=== PATIENT | male | born 2005 | race Caucasian/White ===

== ENCOUNTER → 2024-07-03 | Outpatient (BNVA) | payer MEDICAID, SELFPAY | END | disposition home or self-care (01) | PROVIDERS: PCP Nurse Practitioner Family; Referring Provider Nurse Practitioner Family; Visit Provider Nurse Practitioner Family | DX: E10.9 Type 1 diabetes mellitus without complications (principal); T78.40XA Allergy, unspecified, initial encounter | CPT/HCPCS: 83036; 99215 ==

== ENCOUNTER 2024-07-11 23:49 | Emergency (ER) | payer MEDICAID, SELFPAY ==
[2024-07-11 23:50] VITALS: BMI 25.0
[2024-07-11 23:57] VITALS: BP 134/86; PULSE 93; RESP 18; TEMP 36.4; O2SAT 100
--- NOTE | 2024-07-12 00:10 | PD.EDRME ---
Rapid Medical Screening Exam RME Arrival date/time: 07/11/24 23:49 19M with history of DM and anxiety presents to ED with several days of RLQ pain. Separately, patient has had several days of painful bumps on R-side of neck, but different than previous swollen lymph nodes, which resolved completely prior to this. Patient recently moved back to [facility] and saw PCP who ordered extensive DM panel due to A1C>15%. Chief Complaint: General Adult/Misc Complain Time Seen by Provider: 07/12/24 01:36 Vital signs: Vital Signs Temperature 97.6 F 07/11/24 23:57 Pulse Rate 93 07/11/24 23:57 Respiratory Rate 18 07/11/24 23:57 Blood Pressure 134/86 H 07/11/24 23:57 Pulse Oximetry (%) 100 07/11/24 23:57 Oxygen Delivery Method Room Air 07/11/24 23:57
[2024-07-12 00:46] LABS: Collection Type, Urine Clean Catch; Squamous Epithelial Cell,Urine 0 /hpf (0-5)
[2024-07-12] MEDS: ONDANSETRON INJ 2 MG/ML INJ 2 ML 4 MG IV (00:52)
[2024-07-12 01:00] LABS: Basophils # (Auto) 0.1 Thou/mm3 (0.0-0.2); Basophils % (Auto) 1 % (0-2.5); Eosinophils # (Auto) 0.3 Thou/mm3 (0.0-0.5); Eosinophils % (Auto) 3 % (0-10); Hemoglobin 16.4 g/dL (13.5-16.0); Immature Granulocytes % (Auto) 0 % (0-0); Immature Granulocytes Auto 0.04 Thou/mm3 (0.00-0.00); Lymphocytes # (Auto) 4.1 Thou/mm3 (1.0-4.8); Lymphocytes % (Auto) 38 % (10-50); Mean Corpuscular HGB Conc 35.7 g/dl (31.0-37.0); Mean Corpuscular Hemoglobin 29.2 pg (25.0-35.0); Mean Corpuscular Volume 82 fL (80-100); Monocytes # (Auto) 0.8 Thou/mm3 (0.0-0.8); Monocytes % (Auto) 8 % (0-12); Neutrophils # (Auto) 5.3 Thou/mm3 (1.8-7.7); Neutrophils % (Auto) 50 % (37-80); Nucleated Red Blood Cell % 0 /100 WBC (0); Platelet Count 288 Thou/mm3 (140-440); RDW Standard Deviation 35.6 fL (35.1-43.9); Red Blood Count 5.61 Miln/mm3 (4.50-5.90); White Blood Count 10.6 Thou/mm3 (3.8-10.6)
[2024-07-12 01:06] LABS: Bilirubin,Urine Negative (Negative); Blood,Urine Negative (Negative); Clarity,Urine Clear (Clear/Hazy); Color,Urine Lt-Yellow (Lt Yel-Yel); Glucose, Urine 4+ (Negative); Ketones,Urine 1+ (Negative); Leukocyte Esterase,Urine Negative (Negative); Nitrite,Urine Negative (Negative); Protein,Urine Negative (Neg - Trace); RBC,Urine 1 /hpf (0-3); Specific Gravity,Urine 1.046 (1.001-1.035); Urobilinogen,Urine Negative mg/dL (0.0-1.0); WBC,Urine < 1 /hpf (0-5)
[2024-07-12 01:25] LABS: Amphetamine/Methamp Scrn,U Negative (Negative); Barbiturate Screen,Urine Negative (Negative); Benzodiazepines Screen,Urine Negative (Negative); Benzoylecgonine Screen, Ur Negative (Negative); Fentanyl Screen,Urine Negative (Negative); Opiate Screen,Urine Negative (Negative); THC Screen,Urine Negative (Negative)
[2024-07-12 01:26] LABS: Alanine Aminotransferase 14 U/L (10-49); Albumin/Globulin Ratio 2.2 (1.2-2.2); Alkaline Phosphatase 80 U/L (46-116); Anion Gap 6 (7-16); BUN/Creatinine Ratio 8 Ratio (12-20); Bilirubin,Total 0.5 mg/dL (0.3-1.2); Blood Urea Nitrogen 8 mg/dL (9-23); Calcium 9.7 mg/dL (8.3-10.6); Calcium (Corrected) 9.7 mg/dL (8.5-10.1); Carbon Dioxide 26.5 mMol/L (20.0-31.0); Chloride 102 mMol/L (98-107); Estimated Creatinine Clearance 135.9 mL/min (>60); Globulin 2.3 gm/dL (2.3-3.5); Lipase 29 U/L (12-53); Osmolality,Calculated 284 (275-295); Sodium 134 mMol/L (136-145); Total Protein 7.3 gm/dL (5.7-8.2); eGFR > 60 See Note
[2024-07-12 01:33] LABS: Glucose 431 mg/dL (74-106)
--- NOTE | 2024-07-12 01:37 | EDNOTE_ITS ---
ED Skin Abcess FB-RME/HPI General Chief complaint: General Adult/Misc Complain Stated complaint: ABD PAIN, BUMPS ON RIGHT NECK Time Seen by Provider: 07/12/24 01:36 Arrival date/time: 07/11/24 23:49 19M with history of DM and anxiety presents to ED with several days of lower ab pain. Separately, patient has had several days of painful bumps on R-underside of chin, but different than previous swollen lymph nodes, which resolved completely prior to this. Patient recently moved back to [facility] and saw PCP who ordered extensive DM panel due to A1C>15%. Limitations: no limitations Related Data Previous Rx's ?Medication ?Instructions ?Recorded flash glucose scanning reader #1 ea 07/03/24 (FreeStyle Shamika 14 Day [place]) flash glucose sensor (FreeStyle #1 ea 07/03/24 Shamika 14 Day Sensor kit) insulin glargine 100 unit/mL (3 30 unit (0.3 mL) subcut QAM 30 07/03/24 mL) subcutaneous pen (Basaglar days #9 mL KwikPen U-100 Insulin) insulin lispro 100 unit/mL 1 sliding scale dose subcut 07/03/24 subcutaneous pen (Admelog SoloStar USEASDIRECTD 30 days #15 mL U-100 Insulin lispro) pen needle, diabetic 32 gauge x #100 ea 07/03/24/ (BD Ultra-Fine Micro Pen Needle) doxycycline hyclate 100 mg tablet 100 mg PO BID 10 days #20 tabs 07/12/24 Allergies Allergy/AdvReac Type Severity Reaction Status Date / Time amoxicillin Allergy Intermediate THROAT Verified 07/11/24 23:53 SWELLING Review of Systems Review of Systems Systems Reviewed: All systems reviewed, normal except as documented Constitutional Constitutional: Reports system reviewed and no additional complaints, except as documented, Denies fever(s) and Denies headache(s) ENT Ears, Nose, Mouth, and Throat: Denies disequilibrium and Denies headache(s) Cardiovascular Cardiovascular: Reports system reviewed and no additional complaints, except as documented, Denies chest pain and Denies dyspnea Respiratory Respiratory: Reports system reviewed and no additional complaints, except as documented, Denies cough and Denies dyspnea Gastrointestinal Gastrointestinal: Reports system reviewed and no additional complaints, except as documented, Reports as per HPI, Reports abdominal pain, Denies nausea and Denies vomiting Integumentary/Breasts Skin/Breast: Reports as per HPI and Reports skin pain Neurologic Neurologic: Reports system reviewed and no additional complaints, except as documented, Denies confusion, Denies disequilibrium and Denies headache(s) Psychiatric Psychiatric: Denies confusion Past Medical History Past Medical History CARDIAC: Negative Cardiac Disorders RESPIRATORY: Negative Asthma GENITOURINARY: Negative Renal Disease ENDOCRINE: Positive Diabetes Mellitus Type 2 HEMATOLOGIC: Negative Sickle Cell Disease Social History SMOKING STATUS: Current every day smoker SECOND HAND EXPOSURE: Yes ED Exam General Limitations: Present no limitations General appearance: Present alert and in no apparent distress Head Head exam: Present atraumatic Eye Eye exam: Present normal appearance, PERRL and EOMI ENT ENT exam: Present normal exam, normal oropharynx and mucous membranes moist Neck Neck exam: Present normal inspection, full ROM and trachea midline Chest Chest inspection: Present normal inspection and symmetric chest wall rise Respiratory Respiratory exam: Present normal lung sounds bilaterally Cardiovascular Cardiovascular exam: Present regular rate, normal rhythm and normal heart sounds Abdominal Exam Abdominal exam: Present soft and normal bowel sounds Extremities Exam Extremities exam: Present normal inspection and full ROM Back Exam Back exam: Present normal inspection and full ROM Neurological Exam Neurological exam: Present alert, oriented X3 and CN II-XII intact Psychiatric Psychiatric exam: Present normal affect and normal mood Skin Skin exam: Present warm, dry, intact, normal color and rash Course Quality Measures none Orders Category Date Time Status CT Screening NOW Care 07/12/24 00:10 Completed Insert IV NOW Care 07/12/24 00:[address] abdomen pelvis w con Stat Exams 07/12/24 00:10 Stop Req CBC Stat Lab 07/12/24 00:53 Completed CMP [Comprehensive Metabolic Panel] Stat Lab 07/12/24 00:53 Completed Drug Screen,Urine Stat Lab 07/12/24 00:19 Completed Lipase Stat Lab 07/12/24 00:53 Completed UA [Urinalysis] Stat Lab 07/12/24 00:19 Completed Doxycycline [Vibramycin] Med 07/12/24 01:37 Discontinued 100 mg PO X1 ONE Ondansetron Inj [Zofran Inj] Med 07/12/24 00:29 Discontinued 4 mg IV X1 ONE Vital Signs Vital signs: Vital Signs Temperature 97.6 F 07/11/24 23:57 Pulse Rate 93 07/11/24 23:57 Respiratory Rate 18 07/11/24 23:57 Blood Pressure 134/86 H 12/27/24 23:57 Pulse Oximetry (%) 100 07/11/24 23:57 Oxygen Delivery Method Room Air 07/11/24 23:57 O2 at 100% on RA and WNLs Skin / Abscess / Foreign Body MDM Narrative MDM Narrative:: 19M with history of DM and anxiety presents to ED with several days of lower ab pain. Separately, patient has had several days of painful bumps on R-underside of chin, but different than previous swollen lymph nodes, which resolved completely prior to this. Patient recently moved back to [facility] and saw PCP who ordered extensive DM panel due to A1C>15%. Physical exam reveals mild RLQ and LLQ tenderness. Small, red, tender papules on R underside of chin. Patient is afebrile, calm, and alert. No leukocytosis and no L shift. Normal lipase. Glucose 413, bu no anion gap. UA clean. Tox screen clean. After Zofran was given, patient states ab pain gone and he doesn't want the CT anymore. Papules likely follicullitis. Patient data External records reviewed:: [facility] previous records Clinical information provided by:: patient Social determinants that could affect healthcare access:: none Patient has the following chronic illnesses:: DM How is presenting disease/condition affected by chronic disease/condition?: exacerbated by Evaluation data The following diagnostics were reviewed and interpreted by me:: lab results Lab and/or radiology exams considered but not ordered:: ordered Interpretation Summary: above Medications / Prescriptions Medications or Prescriptions considered but not ordered:: ordered Medication administrations:: Medication Administration History Discontinued Medications Doxycycline Hyclate (Doxycycline 100 Mg Tablet) 100 mg PO X1 ONE Stop: 07/12/24 01:38 Last Admin: 07/12/24 01:47 Dose: 100 mg Documented By: KF Ondansetron HCl (Ondansetron Inj 2 Mg/Ml Inj 2 Ml) 4 mg IV X1 ONE; Protocol Stop: 07/12/24 00:30 Last Admin: 07/12/24 00:52 Dose: 4 mg Documented By: CVL above Consultations Consultation(s) initiated? (list below): No Diagnosis Skin/Abscess Differential Diagnosis: abscess of skin or subcutaneous tissue, viral exanthem, dermatophytosis, urticaria, herpes zoster, allergic reaction to drug, cellulitis, eczema, insect bites, impetigo, contact dermatitis and other (folliculitis, ab pain, hyperglycemia due to DM) Most likely diagnosis given after review of the tests above:: folliculitis, ab pain, hyperglycemia due to DM Admission Indicated Admission indicated?: not indicated Admission Request Was there a request for admission?: No Disposition Plan Disposition Plan: Discharge Discharge Attestation Discharge Attestation: The patient and all family members were given an opportunity to ask questions and understood the discharge instructions. Discharge instructions specifically effects, indications for sooner follow up or return to the emergency department, and the expected course of current diagnosis. Patient condition: Stable Discharge Plan Plan Patient Disposition: HOME (Self Care) Disposition Comment: Stable Prescriptions/Referrals Prescriptions/Med Rec: New doxycycline hyclate 100 mg tablet 100 mg PO BID 10 Days Qty: 20 0RF No Action insulin lispro [Admelog SoloStar U-100 Insulin] 100 unit/mL insulin pen 1 sliding scale dose subcut USEASDIRECTD 30 Days Qty: 15 3RF insulin glargine [Basaglar KwikPen U-100 Insulin] 100 unit/mL (3 mL) insulin pen 30 unit subcut QAM 30 Days Qty: 9 3RF (DME) pen needle, diabetic [BD Ultra-Fine Micro Pen Needle] 32 gauge x 1/4 needle See Rx Instructions .ROUTE .MEDSUPPLY Qty: 100 3RF Rx Instructions: Administer insulin 5 times a day (DME) FreeStyle Shamika 14 Day Sensor Kit See Rx Instructions .Route Qty: 1 0RF Rx Instructions: As directed (DME) FreeStyle Shamika 14 Day [place] Misc See Rx Instructions .Route Qty: 1 0RF Rx Instructions: As directed Problem List Clinical Impression: Hyperglycemia due to diabetes mellitus, Folliculitis, Abdominal pain Patient/Caregiver Discharge Instructions Education Materials: Abdominal Pain Additional Instructions: Please follow-up with PCP within 24-48 hours and return immediately if symptoms worsen. Print Language: Gibraltarian Stand Alone Forms: Work/School Release, Patient Portal Info Letter PA/HOUSEKEEPING DEPARTMENT WORKER Supervising Physician JACKELIN/HOUSEKEEPING DEPARTMENT WORKER Supervising Physician: Dr. Titus
[2024-07-12 01:40] LABS: Aspartate Amino Transferase < 8 U/L (0-34)
[2024-07-12] MEDS: DOXYCYCLINE 100 MG TABLET PO (01:47)
== END 2024-07-12 01:48 | disposition home or self-care (01) ==
LOC: SERX 07-12 02:31
PROVIDERS: Physician Assistant; Emergency Provider Emergency Medicine; PCP Nurse Practitioner Family
DX: L73.9 Follicular disorder, unspecified (principal); E11.65 Type 2 diabetes mellitus with hyperglycemia; R10.9 Unspecified abdominal pain; Z79.4 Long term (current) use of insulin
CPT/HCPCS: 36415; 80053; 80307; 81001; 83690; 85025; 99284; J2405; A9270

== ENCOUNTER 2024-08-01 21:26 | Emergency (ER) | payer MEDICAID, SELFPAY ==
[2024-08-01 21:27] VITALS: BMI 24.3
[2024-08-01 21:58] VITALS: BP 126/84; PULSE 97; RESP 20; TEMP 37.1; O2SAT 97
--- NOTE | 2024-08-01 21:59 | PD.EDSKIN ---
ED Skin Abcess FB-RME/HPI General Chief complaint: Skin/Abscess/Foreign Body Stated complaint: WOKE UP WITH HIVES ALL OVER BODY Time Seen by Provider: 08/01/24 21:59 Source: patient Arrival date/time: 08/01/24 21:26 19-year-old male with no known medical history presents to the emergency room with a chief complaint of hives to his abdominal area that began this morning when he woke up. Mode of arrival: ambulatory Limitations: no limitations Related Data Previous Rx's ?Medication ?Instructions ?Recorded flash glucose scanning reader #1 ea 07/03/24 (FreeStyle Shamkia 14 Day [place]) flash glucose sensor (FreeStyle #1 ea 07/03/24 Shamika 14 Day Sensor kit) insulin glargine 100 unit/mL (3 30 unit (0.3 mL) subcut QAM 30 07/03/24 mL) subcutaneous pen (Basaglar days #9 mL KwikPen U-100 Insulin) insulin lispro 100 unit/mL 1 sliding scale dose subcut 07/03/24 subcutaneous pen (Admelog SoloStar USEASDIRECTD 30 days #15 mL U-100 Insulin lispro) pen needle, diabetic 32 gauge x #100 ea 07/03/24 1/4 (BD Ultra-Fine Micro Pen Needle) diphenhydramine HCl 50 mg tablet 50 mg PO Q8H PRN allergic reaction 08/01/24 (Benadryl Allergy) 10 days #30 tabs epinephrine 0.3 mg/0.3 mL 0.3 ml IM Q5-15M PRN anaphylaxis 08/01/24 injection, auto-injector #2 ea prednisone 50 mg tablet 50 mg PO QDAY PRN allergic 08/01/24 reaction 5 days #5 tabs Allergies Allergy/AdvReac Type Severity Reaction Status Date / Time amoxicillin Allergy Intermediate THROAT Verified 08/01/24 11:04 SWELLING Review of Systems Review of Systems Systems Reviewed: All systems reviewed, normal except as documented Constitutional Constitutional: Reports system reviewed and no additional complaints, except as documented, Denies fatigue, Denies fever(s), Denies headache(s) and Denies weakness Eyes Eyes: Reports system reviewed and no additional complaints, except as documented, Denies blurry vision and Denies change in vision ENT Ears, Nose, Mouth, and Throat: Reports system reviewed and no additional complaints, except as documented, Denies otalgia, Denies headache(s), Denies nasal congestion, Denies throat swelling and Denies vertigo Cardiovascular Cardiovascular: Reports system reviewed and no additional complaints, except as documented, Denies chest pain, Denies dyspnea and Denies dyspnea on exertion Respiratory Respiratory: Reports system reviewed and no additional complaints, except as documented, Denies chest congestion, Denies cough, Denies dyspnea, Denies dyspnea on exertion and Denies wheezing Gastrointestinal Gastrointestinal: Reports system reviewed and no additional complaints, except as documented, Denies abdominal pain, Denies cramping, Denies nausea and Denies vomiting Genitourinary Genitourinary: Reports system reviewed and no additional complaints, except as documented, Denies dysuria and Denies hematuria Musculoskeletal Musculoskeletal: Reports system reviewed and no additional complaints, except as documented and Denies back pain Integumentary/Breasts Skin/Breast: Reports system reviewed and no additional complaints, except as documented and Denies wounds Neurologic Neurologic: Reports system reviewed and no additional complaints, except as documented, Denies confusion, Denies headache(s), Denies lack of coordination, Denies vertigo and Denies weakness Psychiatric Psychiatric: Reports system reviewed and no additional complaints, except as documented, Denies anxiety, Denies confusion, Denies depression, Denies paranoia, Denies suicidal ideation and Denies tactile hallucinations Endocrine Endocrine: Reports system reviewed and no additional complaints, except as documented and Denies fatigue Hematologic/Lymphatic Hematologic/Lymphatic: Reports system reviewed and no additional complaints, except as documented and Denies lymphadenopathy Allergic/Immunologic Allergic/Immunologic: Reports system reviewed and no additional complaints, except as documented, Denies throat swelling, Reports urticaria and Denies wheezing ED Exam General Limitations: Present no limitations General appearance: Present alert and in no apparent distress Head Head exam: Present atraumatic Eye Eye exam: Present normal appearance, PERRL and EOMI ENT ENT exam: Present normal exam, normal oropharynx and mucous membranes moist Neck Neck exam: Present normal inspection, full ROM and trachea midline Chest Chest inspection: Present normal inspection and symmetric chest wall rise Respiratory Respiratory exam: Present normal lung sounds bilaterally Cardiovascular Cardiovascular exam: Present regular rate, normal rhythm and normal heart sounds Abdominal Exam Abdominal exam: Present soft and normal bowel sounds Extremities Exam Extremities exam: Present normal inspection and full ROM Back Exam Back exam: Present normal inspection and full ROM Neurological Exam Neurological exam: Present alert, oriented X3 and CN II-XII intact Psychiatric Psychiatric exam: Present normal affect and normal mood Skin Skin exam: Present warm, dry, intact, normal color and rash Expanded Skin Exam Type of lesion: Present rash Distribution: Present generalized, chest and abdomen Description: Present erythematous and macular Course Quality Measures none Orders Category Date Time Status Dexamethasone Inj [Decadron Inj] Med 08/01/24 21:58 Discontinued 10 mg PO X1 ONE DiphenhydrAMINE [Benadryl] Med 08/01/24 21:58 Discontinued 25 mg PO X1 ONE Famotidine [Pepcid] Med 08/01/24 21:58 Discontinued 20 mg PO X1 ONE Vital Signs Vital signs: Vital Signs Temperature 98.7 F 08/01/24 21:58 Pulse Rate 97 08/01/24 21:58 Respiratory Rate 20 08/01/24 21:58 Blood Pressure 126/84 08/01/24 21:58 Pulse Oximetry (%) 97 08/01/24 21:58 Oxygen Delivery Method Room Air 08/01/24 21:58 Skin / Abscess / Foreign Body MDM Narrative MDM Narrative:: 19-year-old male with no known medical history presents to the emergency room with a chief complaint of hives to his abdominal area that began this morning when he woke up. Clinically the patient appears nontoxic and in no apparent distress. Physical examination shows clear bilateral lung sounds with no wheezing stridor or any respiratory distress. The patient has an erythemic generalized rash consistent with hives throughout his abdomen and rib cage area. Antihistamines were given and the patient was reevaluated in 45 minutes with significant improvement to his symptoms. Patient was discharged and educated to follow-up with primary care provider and return to the emergency room for any evidence of worsening signs or symptoms Patient data External records reviewed:: [facility] previous records Clinical information provided by:: patient Social determinants that could affect healthcare access:: none Patient has the following chronic illnesses:: No chronic illness How is presenting disease/condition affected by chronic disease/condition?: no chronic disease Evaluation data The following diagnostics were reviewed and interpreted by me:: lab results and radiology exam(s) Lab and/or radiology exams considered but not ordered:: Labs and radiology exams considered and ordered Interpretation Summary: N/A Medications / Prescriptions Medications or Prescriptions considered but not ordered:: Medication given Medication administrations:: Medication Administration History Discontinued Medications Dexamethasone Sodium Phosphate (Dexamethasone Sod Phos Inj 10 Mg/Ml Vial) 10 mg PO X1 ONE Stop: 08/01/24 21:59 Last Admin: 08/01/24 22:04 Dose: 10 mg Documented By: OA Diphenhydramine HCl (Diphenhydramine Elix 25 Mg/10 Ml Udc) 25 mg PO X1 ONE Stop: 08/01/24 21:59 Last Admin: 08/01/24 22:04 Dose: 25 mg Documented By: OA Famotidine (Famotidine 20 Mg Tablet) 20 mg PO X1 ONE Stop: 08/01/24 21:59 Last Admin: 08/01/24 22:04 Dose: 20 mg Documented By: OA Medication given Consultations Consultation(s) initiated? (list below): No Diagnosis Skin/Abscess Differential Diagnosis: viral exanthem, urticaria, allergic reaction to drug, cellulitis, insect bites and contact dermatitis Most likely diagnosis given after review of the tests above:: Allergic reaction Admission Indicated Admission indicated?: not indicated Admission Request Was there a request for admission?: No Disposition Plan Disposition Plan: Discharge Discharge Attestation Discharge Attestation: The patient and all family members were given an opportunity to ask questions and understood the discharge instructions. Discharge instructions specifically effects, indications for sooner follow up or return to the emergency department, and the expected course of current diagnosis. Patient condition: Stable Discharge Plan Plan Patient Disposition: HOME (Self Care) Disposition Comment: Stable Prescriptions/Referrals Prescriptions/Med Rec: No Action insulin lispro [Admelog SoloStar U-100 Insulin] 100 unit/mL insulin pen 1 sliding scale dose subcut USEASDIRECTD 30 Days Qty: 15 3RF insulin glargine [Basaglar KwikPen U-100 Insulin] 100 unit/mL (3 mL) insulin pen 30 unit subcut QAM 30 Days Qty: 9 3RF (DME) pen needle, diabetic [BD Ultra-Fine Micro Pen Needle] 32 gauge x 1/4 needle See Rx Instructions .ROUTE .MEDSUPPLY Qty: 100 3RF Rx Instructions: Administer insulin 5 times a day (DME) FreeStyle Shamika 14 Day Sensor Kit See Rx Instructions .Route Qty: 1 0RF Rx Instructions: As directed (DME) FreeStyle Shamika 14 Day [place] Misc See Rx Instructions .Route Qty: 1 0RF Rx Instructions: As directed Benadryl Allergy 50 mg tablet 50 mg PO Q8H PRN (Reason: allergic reaction) 10 Days Qty: 30 0RF prednisone 50 mg tablet 50 mg PO QDAY PRN (Reason: allergic reaction) 5 Days Qty: 5 0RF epinephrine 0.3 mg/0.3 mL auto-injector 0.3 ml IM Q5-15M PRN (Reason: anaphylaxis) Qty: 2 0RF Rx Instructions: do not exceed 3 doses per episode Referrals: [facility] [employer] SHOP SUPERVISOR,Mallika Sanchez PRESS SHOP SUPERVISOR [Primary Care Provider] - In 1 week Problem List Clinical Impression: Allergic reaction Patient/Caregiver Discharge Instructions Education Materials: ED Medicine Reaction: Allergic Additional Instructions: Please follow-up with your primary care provider in the next 24 to 48 hours. Please continue to take your Benadryl to help with your hives. You can follow-up with your primary care provider for allergy testing to try to figure out the root cause of this. For any evidence of worsening signs or symptoms please return to the emergency room immediately Print Language: Kiswahili Stand Alone Forms: [employer] Award Info., Work/School Release, Patient Portal Info Letter PA/GARDENING INSTRUCTOR Supervising Physician PA/GARDENING INSTRUCTOR Supervising Physician: Dr Cisneros
[2024-08-01] MEDS: DEXAMETHASONE SOD PHOS INJ 10 MG/ML VIAL PO (22:04)
[2024-08-01] MEDS: FAMOTIDINE 20 MG TABLET PO (22:04)
[2024-08-01] MEDS: DiphenhydrAMINE ELIX 25 MG/10 ML UDC PO (22:04)
== END 2024-08-02 01:24 | disposition home or self-care (01) ==
PROVIDERS: Emergency Provider Emergency Medicine; PCP Nurse Practitioner Family
DX: T78.40XA Allergy, unspecified, initial encounter (principal)
CPT/HCPCS: 99282; J1100; A9270

== ENCOUNTER → 2024-08-01 | Outpatient (BNVA) | payer MEDICAID, SELFPAY | END | disposition home or self-care (01) | PROVIDERS: PCP Nurse Practitioner Family; Referring Provider Nurse Practitioner Family; Visit Provider Nurse Practitioner Family | DX: Z71.2 Person consulting for explanation of examination or test findings (principal); T78.40XA Allergy, unspecified, initial encounter; R80.9 Proteinuria, unspecified | CPT/HCPCS: 99212; G0463 ==

== ENCOUNTER 2024-08-03 09:02 | Emergency (ER) | payer MEDICAID, SELFPAY ==
[2024-08-03 09:43] VITALS: BP 130/73; PULSE 99; RESP 18; TEMP 36.7; O2SAT 96
[2024-08-03 09:46] VITALS: BMI 24.3
--- NOTE | 2024-08-03 10:24 | PD.EDSKIN ---
ED Skin Abcess FB-RME/HPI General Chief complaint: Skin/Abscess/Foreign Body Stated complaint: RASH ALL OVER BODY SINCE SUNDAY Time Seen by Provider: 08/03/24 09:04 Arrival date/time: 08/03/24 09:02 RME / HPI RME / HPI narrative: DR. NAMAN MOE ED EVALUATION: 19 year old male with no past medical history presents to the Emergency Department with complaint of rash to bilateral forearms, bilateral elbows, and right thigh areas onset 3 days. Symptoms are moderate. Patient was seen 2 days ago for the allergic reaction rash and given medications. Patient denies any of the following: cough, fevers, chills, dysuria, or any other symptoms at this time. Related Data Previous Rx's ?Medication ?Instructions ?Recorded flash glucose scanning reader #1 ea 07/03/24 (FreeStyle Shamika 14 Day [place]) flash glucose sensor (FreeStyle #1 ea 07/03/24 Shamika 14 Day Sensor kit) insulin glargine 100 unit/mL (3 30 unit (0.3 mL) subcut QAM 30 07/03/24 mL) subcutaneous pen (Basaglar days #9 mL KwikPen U-100 Insulin) insulin lispro 100 unit/mL 1 sliding scale dose subcut 07/03/24 subcutaneous pen (Admelog SoloStar USEASDIRECTD 30 days #15 mL U-100 Insulin lispro) pen needle, diabetic 32 gauge x #100 ea 07/03/24 1/4 (BD Ultra-Fine Micro Pen Needle) diphenhydramine HCl 50 mg tablet 50 mg PO Q8H PRN allergic reaction 08/01/24 (Benadryl Allergy) 10 days #30 tabs epinephrine 0.3 mg/0.3 mL 0.3 ml IM Q5-15M PRN anaphylaxis 08/01/24 injection, auto-injector #2 ea prednisone 50 mg tablet 50 mg PO QDAY PRN allergic 08/01/24 reaction 5 days #5 tabs diphenhydramine HCl 25 mg capsule 25 mg PO Q6H PRN allergic reaction 08/03/24 (Benadryl) #14 caps famotidine 40 mg tablet (Pepcid) 40 mg PO QDAY #30 tabs 08/03/24 Allergies Allergy/AdvReac Type Severity Reaction Status Date / Time amoxicillin Allergy Intermediate THROAT Verified 08/03/24 09:04 SWELLING Review of Systems Review of Systems Systems Reviewed: All systems reviewed, normal except as documented Narrative Review of Systems: GEN: No fever, no chills, no weight loss EYES: No discharge, no visual changes, no pain HEENT: No ear pain, no congestion, no sore throat PULM: No shortness of breath, no cough, no congestion CV: No chest pain, no dyspnea on exertion, no palpitations GI: No nausea, no vomiting, no diarrhea, no pain, no constipation : No frequency, no urgency and no dysuria MUSC/SKEL: No joint pain, no back pain SKIN: + rash to bilateral forearms, bilateral elbows, and right thigh areas PSYCH: No hallucinations, no depression HEME/LYMPH: No easy bleeding or bruising tendencies NEURO: No weakness, no headache Past Medical History Social History SMOKING STATUS: Never smoker SUBSTANCE USE: does not use ALCOHOL: Never ED Exam Narrative Physical exam: GENERAL APPEARANCE: Well hydrated, well nourished, in no acute distress. VITALS: All vitals were reviewed and the pulse ox is 96% on room air which is normal according to my interpretation. HEENT: Normocephalic, atramatic, EOMI, EACs are patent. There is no bulge or retraction. Throat without erythema or exudate. Moist oromucosa. No jaundice NECK: Supple, no JVD or bruits. CARDIOVASCULAR: Heart regular without S3-S4 or murmur. No rubs or gallops. LUNGS/CHEST: Clear to auscultation bilaterally. No rales, rhonchi, or wheezing. Normal inspection. ABDOMEN: Soft, nontender, with normal bowel sounds. No pulsatile masses. No rebound, rigidity, or guarding. No incarcerated hernia. Normal inspection and palpation. EXTREMITIES: No edema, clubbing, or cyanosis. Intact CSM. Normal inspection and palpation. SKIN: Warm and dry. Rash to bilateral forearms, bilateral elbows, and right thigh. MUSCULOSKELETAL: No gross deformity, full ROM all extremities. Normal inspection. NEURO: Alert and oriented x3. Cranial nerves II through XII grossly intact. There are no other motor or sensory deficits noted. PSYCHIATRIC: Normal mood and affect. No psychosis. Course Quality Measures none Orders Category Date Time Status Dexamethasone Inj [Decadron Inj] Med 08/03/24 10:30 Discontinued 10 mg PO X1 ONE DiphenhydrAMINE [Benadryl] Med 08/03/24 10:30 Discontinued 25 mg PO X1 ONE Famotidine [Pepcid] Med 08/03/24 10:30 Discontinued 40 mg PO X1 ONE Vital Signs Vital signs: Vital Signs Temperature 98.1 F 08/03/24 09:43 Pulse Rate 99 08/03/24 09:43 Respiratory Rate 18 08/03/24 09:43 Blood Pressure 130/73 08/03/24 09:43 Pulse Oximetry (%) 96 08/03/24 09:43 Oxygen Delivery Method Room Air 08/03/24 09:43 Skin / Abscess / Foreign Body MDM Narrative MDM Narrative:: I, Edwina Cazares, am scribing for and in the presence of Dr. Miner. In the emergency department the patient was given Benadryl, Decadron and Pepcid by mouth. Patient condition has steadily improved. The rash is faintly visible at 12:24 PM. Vital signs are stable. The patient is alert awake oriented x 4 GCS of 15. Normal vital signs. The patient said that his uncle will drive him home. He is recommended to drive with Benadryl. He does have enough prednisone to take at home for his allergy. I am going to prescribe him some Benadryl and Pepcid. Patient data External records reviewed:: [facility] previous records (Reviewed last ED visit dated 08/01/24, discharged with the following: Allergic reaction ) Clinical information provided by:: patient Social determinants that could affect healthcare access:: none Patient has the following chronic illnesses:: Denies any PMHx or surgeries. How is presenting disease/condition affected by chronic disease/condition?: no chronic disease Evaluation data The following diagnostics were reviewed and interpreted by me:: other (specify) (none) Lab and/or radiology exams considered but not ordered:: none Interpretation Summary: n/a Medications / Prescriptions Medications or Prescriptions considered but not ordered:: none Medication administrations:: Medication Administration History Discontinued Medications Dexamethasone Sodium Phosphate (Dexamethasone Sod Phos Inj 10 Mg/Ml Vial) 10 mg PO X1 ONE Stop: 08/03/24 10:31 Last Admin: 08/03/24 10:59 Dose: 10 mg Documented By: VG Diphenhydramine HCl (Diphenhydramine 25 Mg Capsule) 25 mg PO X1 ONE Stop: 08/03/24 10:31 Last Admin: 08/03/24 10:58 Dose: 25 mg Documented By: GEGE Famotidine (Famotidine 20 Mg Tablet) 40 mg PO X1 ONE Stop: 08/03/24 10:31 Last Admin: 08/03/24 10:58 Dose: 40 mg Documented By: GEGE see above Consultations Consultation(s) initiated? (list below): No Diagnosis Skin/Abscess Differential Diagnosis: viral exanthem, urticaria, allergic reaction to drug, insect bites and contact dermatitis Most likely diagnosis given after review of the tests above:: Allergic urticaria Admission Indicated Admission indicated?: not indicated Admission Request Was there a request for admission?: No Disposition Plan Disposition Plan: Discharge Discharge Attestation Discharge Attestation: The patient and all family members were given an opportunity to ask questions and understood the discharge instructions. Discharge instructions specifically effects, indications for sooner follow up or return to the emergency department, and the expected course of current diagnosis. Patient condition: Stable Discharge Plan Plan Patient Disposition: HOME (Self Care) Disposition Comment: Stable and improved Prescriptions/Referrals Prescriptions/Med Rec: New diphenhydramine HCl [Benadryl] 25 mg capsule 25 mg PO Q6H PRN (Reason: allergic reaction) Qty: 14 0RF famotidine [Pepcid] 40 mg tablet 40 mg PO QDAY Qty: 30 0RF No Action insulin lispro [Admelog SoloStar U-100 Insulin] 100 unit/mL insulin pen 1 sliding scale dose subcut USEASDIRECTD 30 Days Qty: 15 3RF insulin glargine [Basaglar KwikPen U-100 Insulin] 100 unit/mL (3 mL) insulin pen 30 unit subcut QAM 30 Days Qty: 9 3RF (DME) pen needle, diabetic [BD Ultra-Fine Micro Pen Needle] 32 gauge x 1/4 needle See Rx Instructions .ROUTE .MEDSUPPLY Qty: 100 3RF Rx Instructions: Administer insulin 5 times a day (DME) FreeStyle Shaimka 14 Day Sensor Kit See Rx Instructions .Route Qty: 1 0RF Rx Instructions: As directed (DME) FreeStyle Shamika 14 Day [place] Misc See Rx Instructions .Route Qty: 1 0RF Rx Instructions: As directed Benadryl Allergy 50 mg tablet 50 mg PO Q8H PRN (Reason: allergic reaction) 10 Days Qty: 30 0RF prednisone 50 mg tablet 50 mg PO QDAY PRN (Reason: allergic reaction) 5 Days Qty: 5 0RF epinephrine 0.3 mg/0.3 mL auto-injector 0.3 ml IM Q5-15M PRN (Reason: anaphylaxis) Qty: 2 0RF Rx Instructions: do not exceed 3 doses per episode Referrals: Snow [facility] VOCATIONAL TRAINING TEACHER,Mallika Sanchez VOCATIONAL TRAINING TEACHER [Primary Care Provider] - In 1 week Problem List Clinical Impression: Allergic urticaria Patient/Caregiver Discharge Instructions Education Materials: ED Hives (Adult) Additional Instructions: Continue Benadryl, Pepcid and prednisone as prescribed for allergy. Follow-up with your medical doctor in 3 days. Return to nearest emergency department if condition worsens or if new symptoms develop. Print Language: Georgian Stand Alone Forms: [employer] Award Info., Patient Portal Info Letter
[2024-08-03] MEDS: FAMOTIDINE 20 MG TABLET 40 MG PO (10:58)
[2024-08-03] MEDS: DiphenhydrAMINE 25 MG CAPSULE PO (10:58)
[2024-08-03] MEDS: DEXAMETHASONE SOD PHOS INJ 10 MG/ML VIAL PO (10:59)
[2024-08-03 13:21] VITALS: BP 126/64; PULSE 98; RESP 18; O2SAT 97
== END 2024-08-03 13:21 | disposition home or self-care (01) ==
PROVIDERS: Emergency Provider Emergency Medicine; PCP Nurse Practitioner Family
DX: L50.0 Allergic urticaria (principal)
CPT/HCPCS: 99282; J1100; A9270

== ENCOUNTER 2024-08-04 03:20 | Emergency (ER) | payer MEDICAID, SELFPAY ==
[2024-08-04 03:21] VITALS: BMI 25.0
--- NOTE | 2024-08-04 03:24 | EKG_ITS ---
[facility] Test Date: 2024-08-04 Pat Name: ANGIE MC Department: Room: - Gender: Male Manager Food: : 2005 Requested By: ED Temporary Provider Order Number: [id number] Reading MD: ED Temporary Provider Measurements Intervals Muir Rate: 84 P: 0 NH: 141 QRS: 27 QRSD: 96 T: 35 QT: 350 QTc: 416 Interpretive Statements SINUS RHYTHM NONSPECIFIC T-WAVE ABNORMALITY Compared to ECG 12/27/2022 18:27:43 Sinus tachycardia no longer present T-wave abnormality still present /store/S0/[id number].pdf
[2024-08-04 03:25] VITALS: BP 107/71; PULSE 89; RESP 19; TEMP 36.6; O2SAT 98
--- NOTE | 2024-08-04 04:09 | XR_ITS ---
Examination: PA lateral chest 2 views TECHNIQUE: Upright PA lateral chest 2 views Exam date and time: August 04, 2024 at 0414 hours INDICATIONS: Chest pain today. FINDINGS: Normal heart size Lungs are clear. The osseous structures are intact IMPRESSION: No active disease
--- NOTE | 2024-08-04 04:10 | PD.EDRME ---
Rapid Medical Screening Exam E Arrival date/time: 08/04/24 03:20 19-year-old male past medical history type 1 diabetes presents emergency department complaining of chest pain that awoke him from his sleep. Patient reports pain worsens with deep breath. Chief Complaint: Chest Pain Time Seen by Provider: 08/04/24 04:02 Vital signs: Vital Signs Temperature 97.8 F 08/04/24 03:25 Pulse Rate 89 08/04/24 03:25 Respiratory Rate 19 08/04/24 03:25 Blood Pressure 107/71 08/04/24 03:25 Pulse Oximetry (%) 98 08/04/24 03:25 Oxygen Delivery Method Room Air 08/04/24 03:25 Vital signs reviewed by provider: Yes
--- NOTE | 2024-08-04 04:45 | EDNOTE_ITS ---
ED Chest Pain RME/HPI General Chief Complaint: Chest Pain Stated Complaint: CHEST PRESSURE Time Seen by Provider: 08/04/24 04:02 Source: patient Arrival date/time: 08/04/24 03:20 19-year-old male past medical history type 1 diabetes presents emergency department complaining of chest pain that awoke him from his sleep. Patient reports pain worsens with deep breath. Patient denies any cough or recent illness. Mode of arrival: ambulatory Limitations: no limitations RME / HPI RME / HPI narrative: 08/04/24 03:20 19-year-old male past medical history type 1 diabetes presents emergency department complaining of chest pain that awoke him from his sleep. Patient reports pain worsens with deep breath. Related Data Previous Rx's ?Medication ?Instructions ?Recorded flash glucose scanning reader #1 ea 07/03/24 (FreeStyle Shamika 14 Day [place]) flash glucose sensor (FreeStyle #1 ea 07/03/24 Shamika 14 Day Sensor kit) insulin glargine 100 unit/mL (3 30 unit (0.3 mL) subcut QAM 30 07/03/24 mL) subcutaneous pen (Basaglar days #9 mL KwikPen U-100 Insulin) insulin lispro 100 unit/mL 1 sliding scale dose subcut 07/03/24 subcutaneous pen (Admelog SoloStar USEASDIRECTD 30 days #15 mL U-100 Insulin lispro) pen needle, diabetic 32 gauge x #100 ea 07/03/24 1/4 (BD Ultra-Fine Micro Pen Needle) diphenhydramine HCl 50 mg tablet 50 mg PO Q8H PRN allergic reaction 08/01/24 (Benadryl Allergy) 10 days #30 tabs epinephrine 0.3 mg/0.3 mL 0.3 ml IM Q5-15M PRN anaphylaxis 08/01/24 injection, auto-injector #2 ea prednisone 50 mg tablet 50 mg PO QDAY PRN allergic 08/01/24 reaction 5 days #5 tabs diphenhydramine HCl 25 mg capsule 25 mg PO Q6H PRN allergic reaction 08/03/24 (Benadryl) #14 caps famotidine 40 mg tablet (Pepcid) 40 mg PO QDAY #30 tabs 08/03/24 Allergies Allergy/AdvReac Type Severity Reaction Status Date / Time amoxicillin Allergy Intermediate THROAT Verified 08/03/24 09:04 SWELLING Review of Systems Review of Systems Systems Reviewed: All systems reviewed, normal except as documented Constitutional Constitutional: Reports system reviewed and no additional complaints, except as documented, Denies body ache(s), Denies chills and Denies fever(s) Eyes Eyes: Reports system reviewed and no additional complaints, except as documented and Denies change in vision ENT Ears, Nose, Mouth, and Throat: Reports system reviewed and no additional complaints, except as documented, Denies disequilibrium, Denies dizziness, Denies sore throat and Denies vertigo Cardiovascular Cardiovascular: Reports system reviewed and no additional complaints, except as documented, Reports chest pain and Denies dyspnea Respiratory Respiratory: Reports system reviewed and no additional complaints, except as documented, Denies chest congestion, Denies cough and Denies dyspnea Gastrointestinal Gastrointestinal: Reports system reviewed and no additional complaints, except as documented, Denies abdominal pain, Denies nausea and Denies vomiting Musculoskeletal Musculoskeletal: Reports system reviewed and no additional complaints, except as documented, Denies abnormal gait and Denies arthralgias Integumentary/Breasts Skin/Breast: Reports system reviewed and no additional complaints, except as documented, Denies erythema, Denies rash and Denies wounds Neurologic Neurologic: Reports system reviewed and no additional complaints, except as documented, Denies abnormal gait, Denies disequilibrium, Denies dizziness and Denies vertigo Past Medical History Past Medical History CARDIAC: Negative Cardiac Disorders or Congestive Heart Failure RESPIRATORY: Negative Chronic Obstructive Pulmonary Disease (COPD) or Asthma GENITOURINARY: Negative Renal Disease ENDOCRINE: Positive Diabetes Mellitus Type 2; Negative Diabetes Mellitus Type 1 HEMATOLOGIC: Negative Sickle Cell Disease Social History SMOKING STATUS: Current some day smoker SECOND HAND EXPOSURE: Yes SUBSTANCE USE: does not use ED Exam General Limitations: Present no limitations General appearance: Present alert and in no apparent distress Head Head exam: Present atraumatic Eye Eye exam: Present normal appearance, PERRL and EOMI ENT ENT exam: Present normal exam, normal oropharynx and mucous membranes moist Neck Neck exam: Present normal inspection, full ROM and trachea midline Chest Chest inspection: Present normal inspection and symmetric chest wall rise Respiratory Respiratory exam: Present normal lung sounds bilaterally Cardiovascular Cardiovascular exam: Present regular rate, normal rhythm and normal heart sounds Abdominal Exam Abdominal exam: Present soft and normal bowel sounds Extremities Exam Extremities exam: Present normal inspection and full ROM Back Exam Back exam: Present normal inspection and full ROM Neurological Exam Neurological exam: Present alert, oriented X3 and CN II-XII intact Psychiatric Psychiatric exam: Present normal affect and normal mood Skin Skin exam: Present warm, dry, intact and normal color Course Quality Measures none Orders Category Date Time Status EKG (ED ONLY) *Do not use* NOW Care 08/04/24 03:24 Completed EKG (ED Only) Stat Exams 08/04/24 03:24 Draft XR chest 2V Stat Exams 08/04/24 04:09 Taken Acetaminophen Tab [Tylenol ES Tab] Med 08/04/24 04:50 Discontinued 1,000 mg PO X1 ONE Vital Signs Vital signs: Vital Signs Temperature 97.8 F 08/04/24 03:25 Pulse Rate 89 08/04/24 03:25 Respiratory Rate 19 08/04/24 03:25 Blood Pressure 107/71 08/04/24 03:25 Pulse Oximetry (%) 98 08/04/24 03:25 Oxygen Delivery Method Room Air 08/04/24 03:25 98% room air with normal limits Procedures -ED EKG Interpretation #1: Date of EK08/04/24 Time of EK:29 Rate: 84 Interpretation: Interpreted by me EKG Impression: Normal sinus rhythm, No acute ST-T changes, No ectopy, No ischemic changes and Normal QRS Chest Pain MDM Narrative MDM Narrative:: 19-year-old male past medical history type 1 diabetes presents emergency department complaining of chest pain that awoke him from his sleep. Patient reports pain worsens with deep breath. Patient denies any cough or recent illness. No adventitious lung sounds on auscultation. 98% room air O2 saturation. Patient vital signs within normal limits with no tachycardia or fever. Chest x-ray was unremarkable based on my interpretation. EKG sinus rhythm. Patient data External records reviewed:: [facility] previous records Clinical information provided by:: patient Social determinants that could affect healthcare access:: none Patient has the following chronic illnesses:: See chart How is presenting disease/condition affected by chronic disease/condition?: uneffected by Evaluation data The following diagnostics were reviewed and interpreted by me:: radiology exam(s) and EKG tracing(s) Lab and/or radiology exams considered but not ordered:: Ordered Interpretation Summary: Interpreted by me Medications / Prescriptions Medications or Prescriptions considered but not ordered:: Ordered Medication administrations:: Medication Administration History Discontinued Medications Acetaminophen (Acetaminophen 500 Mg Tablet) 1,000 mg PO X1 ONE Stop: 08/04/24 04:51 Given Consultations Consultation(s) initiated? (list below): No Diagnosis Chest Pain Differential Diagnosis: fracture of rib, pneumothorax, stable angina, unstable angina pectoris, atypical chest pain, st elevation myocardial infarction, costochondritis, chest pain and biliary colic Most likely diagnosis given after review of the tests above:: Atypical chest pain Admission Indicated Admission indicated?: not indicated Admission Request Was there a request for admission?: No Disposition Plan Disposition Plan: Discharge Discharge Attestation Discharge Attestation: The patient and all family members were given an opportunity to ask questions and understood the discharge instructions. Discharge instructions specifically effects, indications for sooner follow up or return to the emergency department, and the expected course of current diagnosis. Patient condition: Stable Discharge Plan Plan Patient Disposition: HOME (Self Care) Disposition Comment: Stable Prescriptions/Referrals Prescriptions/Med Rec: No Action insulin lispro [Admelog SoloStar U-100 Insulin] 100 unit/mL insulin pen 1 sliding scale dose subcut USEASDIRECTD 30 Days Qty: 15 3RF insulin glargine [Basaglar KwikPen U-100 Insulin] 100 unit/mL (3 mL) insulin pen 30 unit subcut QAM 30 Days Qty: 9 3RF (DME) pen needle, diabetic [BD Ultra-Fine Micro Pen Needle] 32 gauge x 1/4 needle See Rx Instructions .ROUTE .MEDSUPPLY Qty: 100 3RF Rx Instructions: Administer insulin 5 times a day (DME) FreeStyle Shamika 14 Day Sensor Kit See Rx Instructions .Route Qty: 1 0RF Rx Instructions: As directed (DME) FreeStyle Shamika 14 Day [place] Misc See Rx Instructions .Route Qty: 1 0RF Rx Instructions: As directed Benadryl Allergy 50 mg tablet 50 mg PO Q8H PRN (Reason: allergic reaction) 10 Days Qty: 30 0RF prednisone 50 mg tablet 50 mg PO QDAY PRN (Reason: allergic reaction) 5 Days Qty: 5 0RF epinephrine 0.3 mg/0.3 mL auto-injector 0.3 ml IM Q5-15M PRN (Reason: anaphylaxis) Qty: 2 0RF Rx Instructions: do not exceed 3 doses per episode diphenhydramine HCl [Benadryl] 25 mg capsule 25 mg PO Q6H PRN (Reason: allergic reaction) Qty: 14 0RF famotidine [Pepcid] 40 mg tablet 40 mg PO QDAY Qty: 30 0RF Referrals: Jc ([facility]FAUSTO PsoadaP [Primary Care Provider] - In 1 week Problem List Clinical Impression: Atypical chest pain Patient/Caregiver Discharge Instructions Discharge Activity: activity as tolerated Education Materials: ED Chest Pain, Uncertain Cause Additional Instructions: Take Tylenol or ibuprofen as needed for pain. Close follow-up with primary care provider in 24 to 48 hours. Return to emergency department for any worsening symptoms or as needed. Print Language: Kenyan Stand Alone Forms: [employer]umn Award Info., Patient Portal Info Letter JACKELIN/THERAPY MANAGER Supervising Physician JACKELIN/CONI Supervising Physician: Dr. Cisneros
== END 2024-08-04 04:54 | disposition home or self-care (01) ==
PROVIDERS: Emergency Provider Emergency Medicine; PCP Nurse Practitioner Primary Care
DX: R07.89 Other chest pain (principal); R94.31 Abnormal electrocardiogram [ECG] [EKG]
CPT/HCPCS: 71046; 93005; 99283

== ENCOUNTER 2024-08-23 00:06 | Emergency (ER) | payer MEDICAID, SELFPAY ==
--- NOTE | 2024-08-23 00:50 | PC.NURSE ---
SECURITY INFORMED ME THAT HE LEFT ER.
== END 2024-08-23 00:53 | disposition left against medical advice (07) ==
LOC: SERX 01:22
PROVIDERS: Emergency Provider Emergency Medicine
DX: Z53.21 Procedure and treatment not carried out due to patient leaving prior to being seen by health care provider (principal)

== ENCOUNTER → 2024-10-02 | Outpatient (BNVA) | payer MEDICAID, SELFPAY | END | disposition home or self-care (01) | PROVIDERS: PCP Nurse Practitioner Family; Referring Provider Nurse Practitioner Family; Visit Provider Nurse Practitioner Family | DX: H10.32 Unspecified acute conjunctivitis, left eye (principal); J06.9 Acute upper respiratory infection, unspecified; H05.012 Cellulitis of left orbit | CPT/HCPCS: 87804; 87811; 99213 ==

== ENCOUNTER → 2024-10-15 | Outpatient (BNVA) | payer MEDICAID, SELFPAY | END | disposition home or self-care (01) | PROVIDERS: PCP Nurse Practitioner Family; Referring Provider Nurse Practitioner Family; Visit Provider Nurse Practitioner Family | DX: Z00.01 Encounter for general adult medical examination with abnormal findings (principal); E78.5 Hyperlipidemia, unspecified; E13.9 Other specified diabetes mellitus without complications; Z71.2 Person consulting for explanation of examination or test findings; Z79.4 Long term (current) use of insulin; Z00-Z99 Factors influencing health status and contact with health services; R80.9 Proteinuria, unspecified; Z11.3 Encounter for screening for infections with a predominantly sexual mode of transmission; E55.9 Vitamin D deficiency, unspecified; Z71.85 Encounter for immunization safety counseling | CPT/HCPCS: 99215 ==

== ENCOUNTER → 2024-10-17 | Outpatient (BNVA) | payer MEDICAID, SELFPAY | END | disposition home or self-care (01) | PROVIDERS: PCP Internal Medicine; Referring Provider Internal Medicine; Visit Provider Internal Medicine | DX: E13.8 Other specified diabetes mellitus with unspecified complications (principal); F41.9 Anxiety disorder, unspecified; F33.1 Major depressive disorder, recurrent, moderate; R80.9 Proteinuria, unspecified; E78.5 Hyperlipidemia, unspecified | CPT/HCPCS: 99204 ==